=== PATIENT | female | born 1955 | race Asian ===

== ENCOUNTER 2019-03-09 10:57 | Outpatient (CLI) | payer OTHER | END 2019-03-09 23:23 | disposition home or self-care (01) | LOC: RAD 10:57 | DX: M05.79 Rheumatoid arthritis with rheumatoid factor of multiple sites without organ or systems involvement (principal); Z79.899 Other long term (current) drug therapy ==

== ENCOUNTER 2019-05-08 08:17 | Outpatient (CLI) | payer OTHER | END 2019-05-08 20:55 | disposition home or self-care (01) | LOC: US 08:17 | DX: M05.79 Rheumatoid arthritis with rheumatoid factor of multiple sites without organ or systems involvement (principal); R94.5 Abnormal results of liver function studies; Z79.899 Other long term (current) drug therapy | CPT/HCPCS: 36415; 82103; 82390; 82525; 82728; 83516; 83540 ==

== ENCOUNTER 2020-09-04 12:25 | Outpatient (CLI) | payer OTHER | END 2020-09-04 22:43 | disposition home or self-care (01) | LOC: RAD 12:25 | PROVIDERS: ATTEND Nurse Practitioner Family | DX: M05.79 Rheumatoid arthritis with rheumatoid factor of multiple sites without organ or systems involvement (principal) ==